=== PATIENT | male | born 1985 | race Caucasian/White ===

== ENCOUNTER 2022-06-21 15:46 | Emergency (ER) | payer OTHER, MEDICAID | END 2022-06-21 17:42 | disposition home or self-care (01) | LOC: JP.ED 15:46 | DX: S60.221A Contusion of right hand, initial encounter (principal); F17.210 Nicotine dependence, cigarettes, uncomplicated; W22.09XA Striking against other stationary object, initial encounter | CPT/HCPCS: 73130-26-RT; 73130-RT; 99283 ==

== ENCOUNTER 2023-06-09 10:44 | Emergency (ER) | payer MEDICAID ==
[2023-06-09] MEDS ORDERED: Methocarbamol 500 MG Tab PO ONE (11:36)
== END 2023-06-09 12:57 | disposition home or self-care (01) ==
LOC: JP.ED 10:44
DX: S29.012A Strain of muscle and tendon of back wall of thorax, initial encounter (principal); W17.89XA Other fall from one level to another, initial encounter
CPT/HCPCS: 71250; 72125; 76377; 99283; A9270